=== PATIENT | female | born 1940 | race Caucasian/White ===

== ENCOUNTER 2021-05-10 12:19 | Observation (INO) | payer MEDICARE ==
[~2021-05-10] VITALS: Ht 172.7 cm; Wt 68.0 kg
[2021-05-10] MEDS ORDERED: ONDANSETRON HCL INJ 2MG/ML 2ML 2 MG/ML VIAL IV PRN (15:30)
[2021-05-10] MEDS ORDERED: ASPIRIN 81 MG CHEW TAB PO ONE (15:30)
[2021-05-10] MEDS ORDERED: SODIUM CHLORIDE FLUSH 10 ML SYR INJ PRN (15:30)
[2021-05-10] MEDS ORDERED: ASPIRIN 81 MG CHEW TAB ONE (16:03)
[2021-05-10 16:58] VITALS: BP 153/86
[2021-05-10 17:36] VITALS: BP 153/86
[2021-05-10] MEDS ORDERED: ATENOLOL50 MG PO (17:41)
[2021-05-10] MEDS ORDERED: AMLODIPINE BESY10 MG PO (17:41)
[2021-05-10] MEDS ORDERED: MICARDIS HCT 81 EACH PO (17:41)
[2021-05-10] MEDS ORDERED: HYDRALAZINE HCL 20 MG/ML VIAL IV PRN (17:45)
[2021-05-10 18:18] LABS: CREATINE KINASE MB 1.5 ng/mL (0-5.0)
[2021-05-10] MEDS ORDERED: DIPHENHYDRAMINE HCL 25 MG CAP PO PRN (19:15)
[2021-05-10 19:28] LABS: BASOPHILS % 0.3 % (0.0-1.0); EOSINOPHILS % 0.3 % (0.0-6.0); HEMATOCRIT 37.1 % (34.2-44.1); HEMOGLOBIN 12.8 g/dL (12.0-16.0); LYMPHOCYTES % 16.3 % (18.0-39.1); MEAN CORPUSCULAR HEMOGLOBIN 33.9 pg (28-32); MEAN CORPUSCULAR HGB CONC 34.5 g/dL (31-35); MEAN CORPUSCULAR VOLUME 98.1 fL (81-99); MONOCYTES # (AUTO) 0.6 (0.2-0.8); MONOCYTES % 9.1 % (4.4-11.3); NEUTROPHILS # (AUTO) 4.7 (2.1-6.9); NEUTROPHILS % 73.7 % (38.7-80.0); PLATELET COUNT 235 x10e3/uL (140-360); RED BLOOD COUNT 3.78 x10e6/uL (3.6-5.1); RED CELL DISTRIBUTION WIDTH 11.7 % (11.7-14.4)
[2021-05-10 19:42] LABS: ALBUMIN 4.6 g/dL (3.5-5.0); ANION GAP 16.8 mmol/L (8-16); CALCIUM 9.5 mg/dL (8.4-10.2); CREATININE, SERUM 0.61 mg/dL (0.57-1.11); POTASSIUM 3.8 mmol/L (3.5-5.1)
[2021-05-10] MEDS: ACETAMINOPHEN 325 MG TAB PO PRN ×2 (19:42→23:48)
[2021-05-10 19:43] LABS: ALBUMIN/GLOBULIN RATIO 1.6 (0.8-2.0)
[2021-05-10 20:00] VITALS: BP 158/78
[2021-05-10 20:02] LABS: THYROID STIMULATING HORMONE 1.691 uIU/mL (0.350-4.940)
[2021-05-10 20:53] VITALS: BP 158/78
[2021-05-11] VITALS: BP 132/58
[2021-05-11 04:00] VITALS: BP 119/62
[2021-05-11 05:56] LABS: BASOPHILS % 0.6 % (0.0-1.0); EOSINOPHILS # (AUTO) 0.2 (0.0-0.4); EOSINOPHILS % 4.2 % (0.0-6.0); HEMATOCRIT 31.2 % (34.2-44.1); HEMOGLOBIN 10.9 g/dL (12.0-16.0); LYMPHOCYTES # (AUTO) 0.9 (1.0-3.2); LYMPHOCYTES % 26.1 % (18.0-39.1); MEAN CORPUSCULAR HEMOGLOBIN 33.5 pg (28-32); MEAN CORPUSCULAR HGB CONC 34.9 g/dL (31-35); MONOCYTES # (AUTO) 0.6 (0.2-0.8); MONOCYTES % 16.6 % (4.4-11.3); NEUTROPHILS # (AUTO) 1.9 (2.1-6.9); NEUTROPHILS % 52.5 % (38.7-80.0); PLATELET COUNT 184 x10e3/uL (140-360); RED BLOOD COUNT 3.25 x10e6/uL (3.6-5.1); RED CELL DISTRIBUTION WIDTH 11.7 % (11.7-14.4)
[2021-05-11 06:11] LABS: ALBUMIN 3.9 g/dL (3.5-5.0); ALBUMIN/GLOBULIN RATIO 1.9 (0.8-2.0); ANION GAP 13.8 mmol/L (8-16); CALCIUM 8.8 mg/dL (8.4-10.2); CREATININE, SERUM 0.61 mg/dL (0.57-1.11); POTASSIUM 3.8 mmol/L (3.5-5.1)
[2021-05-11] MEDS ORDERED: ASPIRIN CHEW81 MG PO ×2 (07:16→07:44)
[2021-05-11 07:52] VITALS: BP 137/69
[2021-05-11] MEDS ORDERED: LORAZEPAM INJ 2 MG/ML VIAL IV ONE ×2 (08:00→12:30)
[2021-05-11] MEDS ORDERED: ATENOLOL 50 MG TAB PO SCH (09:00)
[2021-05-11 09:29] LABS: CREATINE KINASE MB 1.4 ng/mL (0-5.0)
[2021-05-11 11:43] VITALS: BP 151/74
[2021-05-11] MEDS ORDERED: ONDANSETRON HCL 4 MG ORAL DISINTEGRATING TAB PO PRN (14:30)
== END 2021-05-11 15:40 | disposition home or self-care (01) ==
LOC: FSED 12:32 → INTOOBSV 15:32 → ERHOLD 15:32 → MED/SURG 16:22
PROVIDERS: ADMIT Internal Medicine; ATTEND Internal Medicine
DX: I48.0 Paroxysmal atrial fibrillation (principal); I10 Essential (primary) hypertension; Z20.822 Contact with and (suspected) exposure to COVID-19
CPT/HCPCS: 36415 ×2; 70450; 70551; 71046; 80053 ×2; 82550 ×2; 82553 ×2; 83880; 84443; 84484 ×2; 85025 ×2; 85379; 93005; 93306; 93880; 97116; 97161; 99284; G0378 ×2; J2060; U0002

== ENCOUNTER 2022-02-07 06:45 | Emergency (ER) | payer MEDICARE ==
[~2022-02-07] VITALS: Ht 170.2 cm; Wt 62.1 kg
[~2022-02-07 06:45] MED LIST: AMLODIPINE BESY10 MG PO; ASPIRIN CHEW81 MG PO; ATENOLOL50 MG PO; BACTRIM DS TAB1 EACH PO; CEFDINIR300 MG PO; DETROL LA4 MG PO; FAMCICLOVIR250 MG PO; HYDROXYZINE HCL25 MG PO; MICARDIS HCT 81 EACH; MICARDIS HCT 81 EACH PO; NITROFURANTOIN50 MG PO; VAGISIL CREAM28 GM VG
[2022-02-07] MEDS ORDERED: SODIUM CHLORIDE 0.9% 1000ML 1,000 ML ONE (07:27)
[2022-02-07 07:41] LABS: BASOPHILS % 0.2 % (0.0-1.0); EOSINOPHILS # (AUTO) 0.1 (0.0-0.4); EOSINOPHILS % 1.5 % (0.0-6.0); HEMATOCRIT 32.3 % (34.2-44.1); HEMOGLOBIN 11.3 g/dL (12.0-16.0); LYMPHOCYTES # (AUTO) 0.7 (1.0-3.2); LYMPHOCYTES % 14.1 % (18.0-39.1); MEAN CORPUSCULAR HEMOGLOBIN 32.4 pg (28-32); MEAN CORPUSCULAR VOLUME 92.6 fL (81-99); MONOCYTES # (AUTO) 0.7 (0.2-0.8); NEUTROPHILS # (AUTO) 3.7 (2.1-6.9); NEUTROPHILS % 70.8 % (38.7-80.0); PLATELET COUNT 235 x10e3/uL (140-360); RED BLOOD COUNT 3.49 x10e6/uL (3.6-5.1); RED CELL DISTRIBUTION WIDTH 11.1 % (11.7-14.4)
[2022-02-07 08:05] LABS: ALBUMIN/GLOBULIN RATIO 1.4 (0.8-2.0); ANION GAP 19.3 mmol/L (8-16); CALCIUM 9.4 mg/dL (8.4-10.2); CREATININE, SERUM 0.79 mg/dL (0.57-1.11); POTASSIUM 3.3 mmol/L (3.5-5.1)
[2022-02-07 10:37] LABS: CLARITY,URINE SL CLOUDY (CLEAR); COLOR,URINE ORANGE (YELLOW)
[2022-02-07 10:38] LABS: KETONES,URINE 2+ (NEGATIVE); LEUKOCYTE ESTERASE ,URINE NEGATIVE (NEGATIVE); NITRITE,URINE POSITIVE (NEGATIVE); PROTEIN,URINE DIPSTICK NEGATIVE (NEGATIVE); URINE UROBILINOGEN 0.2 mg/dL (0.2 - 1)
[2022-02-07 10:40] LABS: BACTERIA,URINE FEW /HPF; EPITHELIAL CELLS,URINE FEW /LPF; RBC,URINE 0-5 /HPF (0-5); WBC,URINE (MAN) 0-5 /HPF (0-5)
== END 2022-02-07 11:07 | disposition home or self-care (01) ==
LOC: ER 06:48
DX: R53.1 Weakness (principal); N32.89 Other specified disorders of bladder; I10 Essential (primary) hypertension; Z20.822 Contact with and (suspected) exposure to COVID-19
CPT/HCPCS: 36415; 71045; 80053; 81001; 84484; 85025; 87086; 93005; 99283; J7030; U0002; 87186

== ENCOUNTER 2022-08-16 13:00 | Emergency (ER) | payer MEDICARE ==
[~2022-08-16] VITALS: Ht 170.2 cm; Wt 62.1 kg
[2022-08-16 14:26] LABS: BASOPHILS % 0.4 % (0.0-1.0); EOSINOPHILS % 0.2 % (0.0-6.0); HEMATOCRIT 32.8 % (34.2-44.1); HEMOGLOBIN 11.4 g/dL (12.0-16.0); LYMPHOCYTES # (AUTO) 0.8 (1.0-3.2); LYMPHOCYTES % 16.6 % (18.0-39.1); MEAN CORPUSCULAR HEMOGLOBIN 31.7 pg (28-32); MEAN CORPUSCULAR HGB CONC 34.8 g/dL (31-35); MEAN CORPUSCULAR VOLUME 91.1 fL (81-99); MONOCYTES # (AUTO) 0.3 (0.2-0.8); MONOCYTES % 5.6 % (4.4-11.3); NEUTROPHILS # (AUTO) 3.9 (2.1-6.9); PLATELET COUNT 244 x10e3/uL (140-360); RED CELL DISTRIBUTION WIDTH 12.2 % (11.7-14.4)
[2022-08-16 14:49] LABS: ALBUMIN 4.1 g/dL (3.5-5.0); ALBUMIN/GLOBULIN RATIO 1.5 (0.8-2.0); CALCIUM 9.3 mg/dL (8.4-10.2); CREATININE, SERUM 0.75 mg/dL (0.57-1.11)
[2022-08-16 15:51] LABS: CLARITY,URINE CLEAR (CLEAR); COLOR,URINE YELLOW (YELLOW); KETONES,URINE NEGATIVE (NEGATIVE); LEUKOCYTE ESTERASE ,URINE NEGATIVE (NEGATIVE); NITRITE,URINE NEGATIVE (NEGATIVE); PROTEIN,URINE DIPSTICK NEGATIVE (NEGATIVE); URINE UROBILINOGEN 0.2 mg/dL (0.2 - 1)
[2022-08-16 16:04] LABS: BACTERIA,URINE RARE /HPF; EPITHELIAL CELLS,URINE FEW /LPF; RBC,URINE 0-5 /HPF (0-5); TRANSITIONAL EPI CELLS,URINE MODERATE; WBC,URINE (MAN) 0-5 /HPF (0-5)
[2022-08-16] MEDS ORDERED: CITRATE OF MAGNESIA 300ML BOTTLE PO ONE (16:30)
[2022-08-16] MEDS ORDERED: GOLYTELY SOLU4000 M1 PO (16:37)
== END 2022-08-16 17:31 | disposition home or self-care (01) ==
LOC: ER 13:34
DX: K59.00 Constipation, unspecified (principal); R10.30 Lower abdominal pain, unspecified; I10 Essential (primary) hypertension
CPT/HCPCS: 36415; 74176; 80053; 81001; 83690; 85025; 99284